=== PATIENT | male | born 1985 | race Caucasian/White ===

== ENCOUNTER 2018-03-27 13:56 | Emergency (ER) | payer OTHER ==
[2018-03-27 14:14] VITALS: BP 146/78; PULSE 78; O2SAT 96
--- NOTE | 2018-03-27 14:35 | ERPHSYRPT ---
- History of Present Illness Time Seen by Provider: 03/27/18 14:33 Source: patient Exam Limitations: no limitations Patient Subjective Stated Complaint: sob x 2 weeks increasing today. staets feels tight when breathing. and daughter has had strep throat. Triage Nursing Assessment: no acute distress. lungs clear bilaterally nasal congestion noted. no pain but feels tight with breathing. no edema noted. Physician History: 33 y/o white male with h/o throid cancer s/p complete resection 4 years ago, presents with mild soa but worsening over 2 weeks. pts and daughter may have been exposed to strep throat. pt denies cp but does have chest tightness. another factor may be contributing to his sx is today is the anniversary of pts former 's . pt does not have sore throat. he has a mild cough. pt denies fever and denies abd pain. Timing/Duration: week(s) (2) Cough Quality/Degree: mild, dry cough Possible Cause: no prior episodes Modifying Factors: Improves With: activity, lying down Associated Symptoms: cough, shortness of breath, No fever, No chills, No chest pain/soreness, No dizziness, No nasal congestion, No nasal drainage, No sore throat, No wheezing International travel in last 2 weeks: No Allergies/Adverse Reactions: No Known Drug Allergies Allergy (Unverified 08/23/13 12:48) Home Medications: No Home Meds [No Home Meds] 0 11/26/11 [History] Hx Tetanus, Diphtheria Vaccination/Date Given: No Hx Influenza Vaccination/Date Given: No Hx Pneumococcal Vaccination/Date Given: No - Review of Systems Constitutional: No Symptoms, No Fever, No Chills Eyes: No Symptoms, No Eye Pain Ears, Nose, & Throat: No Symptoms, No Ear Pain, No Nose Pain, No Nose Congestion , No Nose Discharge, No Throat Pain, No Stridor Respiratory: Cough, Dyspnea, Dyspnea on Exertion (CASTELLANOS), No Stridor, No Wheezing Cardiac: No Symptoms, No Chest Pain, No Palpitations, No Syncope Abdominal/Gastrointestinal: No Symptoms, No Abdominal Pain, No Nausea, No Vomiting, No Diarrhea Genitourinary Symptoms: No Symptoms, No Dysuria, No Frequency, No Hematuria Musculoskeletal: No Symptoms, No Neck Pain Skin: No Symptoms Neurological: No Symptoms Psychological: No Symptoms Endocrine: No Symptoms, No Polyuria, No Polydipsia Hematologic/Lymphatic: No Symptoms Immunological/Allergic: No Symptoms All Other Systems: Reviewed and Negative - Past Medical History Pertinent Past Medical History: Yes Neurological History: No Pertinent History ENT History: No Pertinent History Cardiac History: No Pertinent History Respiratory History: No Pertinent History Endocrine Medical History: No Pertinent History Musculoskeletal History: Other GI Medical History: No Pertinent History History: No Pertinent History Psycho-Social History: No Pertinent History Male Reproductive Disorders: No Pertinent History Other Medical History: broke back 2003 - Past Surgical History Past Surgical History: Yes Neuro Surgical History: No Pertinent History Cardiac: No Pertinent History Respiratory: No Pertinent History Gastrointestinal: Appendectomy Genitourinary: No Pertinent History Musculoskeletal: No Pertinent History Male Surgical History: No Pertinent History - Social History Smoking Status: Never smoker Exposure to second hand smoke: No Drug Use: none Patient Lives Alone: No - Nursing Vital Signs Nursing Vital Signs: Initial Vital Signs Temperature 98.0 F 03/27/18 14:00 Pulse Rate 78 03/27/18 14:00 Respiratory Rate 18 03/27/18 14:00 Blood Pressure 146/78 03/27/18 14:00 O2 Sat by Pulse Oximetry 96 03/27/18 14:00 Pain Scale Pain Intensity 0 - Physical Exam General Appearance: no apparent distress, alert, anxiety Eye Exam: PERRL/EOMI, eyes nml inspection Ears, Nose, Throat Exam: normal ENT inspection, TMs normal Neck Exam: normal inspection, non-tender, supple, full range of motion Respiratory Exam: normal breath sounds, lungs clear, airway intact, No chest tenderness, No respiratory distress, No accessory muscle use, No rhonchi, No wheezing, No stridor Cardiovascular Exam: regular rate/rhythm, normal heart sounds, normal peripheral pulses Gastrointestinal/Abdomen Exam: soft, normal bowel sounds, guarding, rebound Rectal Exam: not done Back Exam: normal inspection, normal range of motion, No CVA tenderness, No vertebral tenderness Extremity Exam: normal inspection, normal range of motion, pelvis stable Neurologic Exam: alert, oriented x 3, cooperative, insolvency consultant II-XII nml as tested, normal mood/affect, nml cerebellar function, nml station & gait, sensation nml, No motor deficits, No sensory deficit Skin Exam: normal color, warm, dry Lymphatic Exam: No adenopathy SpO2 Interpretation: normal SpO2: 96 Oxygen Delivery: Room Air - Course Nursing assessment & vital signs reviewed: Yes EKG Interpreted by Me: RATE (70), Sinus Rhythm, NORMAL AXIS, NORMAL INTERVALS, NORMAL QRS, NORMAL ST-T Ordered Tests: Active Orders 24 hr Category Date Time Status EKG-ER Only STAT Care 03/27/18 14:47 Active IV Insertion STAT Care 03/27/18 14:47 Active CHEST 1 VIEW (PORTABLE) Stat Exams 03/27/18 14:48 Completed BMP Stat Lab 03/27/18 15:00 Completed CBC W DIFF Stat Lab 03/27/18 15:00 Completed D-DIMER QUANTITATION Stat Lab 03/27/18 15:00 Completed NT PRO BNP Stat Lab 03/27/18 15:00 Completed TROPONIN Q3H Lab 03/27/18 15:00 Completed TROPONIN Q3H Lab 03/27/18 18:00 Ordered TROPONIN Q3H Lab 03/27/18 21:00 Ordered TROPONIN Q3H Lab 03/28/18 00:00 Ordered TROPONIN Q3H Lab 03/28/18 03:00 Ordered Lab/Rad Data: Laboratory Result Diagrams 03/27/18 15:00 03/27/18 15:00 Laboratory Results 03/27/18 03/27/18 03/27/18 Range/Units 15:00 15:00 15:00 WBC (4.0-10.5) K/mm3 RBC (4.1-5.6) M/mm3 Hgb (12.5-18.0) gm/dl Hct (42-50) % MCV (78-100) fl MCH (26-32) pg MCHC (32-36) g/dl RDW (11.5-14.0) % Plt Count (150-450) K/mm3 MPV (6-9.5) fl Gran % (36.0-66.0) % Eos # (Auto) (0-0.5) Absolute Lymphs (auto) (1.0-4.6) Absolute Monos (auto) (0.0-1.3) Lymphocytes % (24.0-44.0) % Monocytes % (0.0-12.0) % Eosinophils % (0.00-5.0) % Basophils % (0.0-0.4) % Absolute Granulocytes (1.4-6.9) Basophils # (0-0.4) D-Dimer < 68 L (215-500) ng/mL Sodium 144 (137-145) mmol/L Potassium 3.8 (3.5-5.1) mmol/L Chloride 107 (98-107) mmol/L Carbon Dioxide 25 (22-30) mmol/L Anion Gap 15.1 H (5-15) MEQ/L BUN 12 (9-20) mg/dL Creatinine 0.94 (0.66-1.25) mg/dL Estimated GFR > 60.0 ML/MIN Glucose 113 H (74-106) mg/dL Calcium 10.0 (8.4-10.2) mg/dL Troponin I < 0.012 (0.000-0.034) ng/mL NT-Pro-B Natriuret Pep 18.6 (0-450) pg/mL 03/27/18 Range/Units 15:00 WBC 6.3 (4.0-10.5) K/mm3 RBC 5.35 (4.1-5.6) M/mm3 Hgb 15.5 (12.5-18.0) gm/dl Hct 44.4 (42-50) % MCV 83.0 (78-100) fl MCH 29.0 (26-32) pg MCHC 34.9 (32-36) g/dl RDW 13.3 (11.5-14.0) % Plt Count 239 (150-450) K/mm3 MPV 11.2 H (6-9.5) fl Gran % 68.7 H (36.0-66.0) % Eos # (Auto) 0.08 (0-0.5) Absolute Lymphs (auto) 1.34 (1.0-4.6) Absolute Monos (auto) 0.53 (0.0-1.3) Lymphocytes % 21.1 L (24.0-44.0) % Monocytes % 8.4 (0.0-12.0) % Eosinophils % 1.3 (0.00-5.0) % Basophils % 0.5 (0.0-0.4) % Absolute Granulocytes 4.36 (1.4-6.9) Basophils # 0.03 (0-0.4) D-Dimer (215-500) ng/mL Sodium (137-145) mmol/L Potassium (3.5-5.1) mmol/L Chloride (98-107) mmol/L Carbon Dioxide (22-30) mmol/L Anion Gap (5-15) MEQ/L BUN (9-20) mg/dL Creatinine (0.66-1.25) mg/dL Estimated GFR ML/MIN Glucose (74-106) mg/dL Calcium (8.4-10.2) mg/dL Troponin I (0.000-0.034) ng/mL NT-Pro-B Natriuret Pep (0-450) pg/mL - Progress Progress: unchanged Air Movement: good Blood Culture(s) Obtained: No Antibiotics given: No Counseled pt/family regarding: lab results, diagnosis, need for follow-up, rad results - Departure Time of Disposition: 16:08 Departure Disposition: Home Clinical Impression: Shortness of breath, Cough Condition: Stable Critical Care Time: No Referrals: DOCTOR,NO FAMILY [Primary Care Provider] - Additional Instructions: follow up with primary doctor for further management.
[2018-03-27 15:09] LABS: BASOPHIL % 0.5 % (0.0-0.4); Basophil (Absolute #) 0.03 (0-0.4); Eosinophil % 1.3 % (0.00-5.0); Eosinophil (Absolute #) 0.08 (0-0.5); Granulocyte Absolute (ANC) 4.36 (1.4-6.9); Granulocytes % 68.7 % (36.0-66.0); Hematocrit 44.4 % (42-50); Hemoglobin 15.5 gm/dl (12.5-18.0); Lymphocyte (Absolute #) 1.34 (1.0-4.6); Lymphocytes % 21.1 % (24.0-44.0); Mean Corpuscular Hgb Concent. 34.9 g/dl (32-36); Mean Platelet Volume 11.2 fl (6-9.5); Monocyte (Absolute #) 0.53 (0.0-1.3); Monocytes % 8.4 % (0.0-12.0); Platelet Count 239 K/mm3 (150-450); Red Blood Count 5.35 M/mm3 (4.1-5.6); Red Cell Distribution Width 13.3 % (11.5-14.0); White Blood Count 6.3 K/mm3 (4.0-10.5)
--- NOTE | 2018-03-27 15:20 | XRAY ---
Indication: Chest tightness and trouble breathing 3 days. Comparison: August 23, 2013. Portable chest demonstrates normal heart and lungs. Bony thorax intact. No new/acute findings.
[2018-03-27 16:06] LABS: ANION GAP 15.1 MEQ/L (5-15); BLOOD UREA NITROGEN 12 mg/dL (9-20); CHLORIDE 107 mmol/L (98-107); Carbon Dioxide 25 mmol/L (22-30); Creatinine 1 0.94 mg/dL (0.66-1.25); Glucose 113 mg/dL (74-106); NT PRO BNP 18.6 pg/mL (0-450); Potassium 3.8 mmol/L (3.5-5.1); SODIUM 144 mmol/L (137-145)
== END 2018-03-27 16:20 | disposition home or self-care (01) ==
LOC: ED 13:56
DX: R06.02 Shortness of breath (principal); R05 Cough; R07.89 Other chest pain; Z85.850 Personal history of malignant neoplasm of thyroid
CPT/HCPCS: 36000; 36415; 71045; 80048; 83880; 84484; 85025; 85379; 93005; 99284

== ENCOUNTER 2020-11-06 05:56 | Day surgery (SDC) | payer BC ==
[2020-11-06] MEDS ORDERED: Lactated Ringers 1,000 ML IV SCH (06:30)
[2020-11-06] MEDS ORDERED: DIPRIVAN 200 MG/20 ML IV ONE ×2 (07:30→07:31)
[2020-11-06 08:28] VITALS: O2SAT 98
[2020-11-06 08:45] VITALS: BP 120/62; PULSE 71
--- NOTE | 2020-11-06 09:32 | OP ---
SURGERY DATE/TIME: 11/06/2020 0734 PREOPERATIVE DIAGNOSIS: Left lower quadrant abdominal pain for two months. POSTOPERATIVE DIAGNOSIS: Small sigmoid polyp. PROCEDURE: Colonoscopy with cold forceps biopsy. SURGEON: Dr. Cruz. ANESTHESIA: MAC. Medications given by anesthesia department. HISTORY: The patient is a 35 year-old white male patient who reports approximately two month history of left lower quadrant abdominal pain which he reports resolved two days before the procedure. He denied any change in the bowels. He has had no blood in the stool. There is no significant family history of colon cancer or colitis. The patient was felt the need to have endoscopic evaluation. He was appraised of the risks of the procedure including the risk of perforation, phlebitis, untoward reaction to medication, bleeding and missed lesions. The patient verbalized his understanding and desired to have the procedure performed. DESCRIPTION OF PROCEDURE: The patient was given the medications by the anesthesia department. He had continuous pulse oximetry, ECG monitoring, intermittent blood pressure monitoring and tidal CO2 monitoring during the examination. He was placed in the left lateral decubitus position. A digital rectal examination was performed and revealed normal anal sphincter tone, no masses and normal prostate. The flexible Olympus pediatric colonoscope was used to intubate the rectum. A view of the colon was developed sequentially to the cecum including a short distance in the terminal ileum. Upon insertion and withdrawal, including a retroflex view in the rectum was noted one small polyp in the sigmoid colon which was destroyed using two passes of cold biopsy forceps. No other mucosal lesions being encountered the scope was removed from the patient who tolerated the procedure well and was sent back to OP recovery in good condition. The prep was noted to be good.
== END 2020-11-06 08:50 | disposition home or self-care (01) ==
LOC: SDC 05:56
PROVIDERS: ATTEND Family Medicine
DX: K63.5 Polyp of colon (principal); R10.32 Left lower quadrant pain; R19.4 Change in bowel habit
CPT/HCPCS: J2704